=== PATIENT | male | born 1965 | race Caucasian/White ===

== ENCOUNTER → 2020-08-02 | Outpatient (CLI) | payer BC ==
--- NOTE | 2020-08-05 12:39 | CARD ---
MR#: [id number] Date of Study: 08/02/2020 Ordering Physician: AMAURI AMBROSIO, Referring Physician: AMAURI AMBROSIO, Tech: Aminata Tyler [facility] APPROVED REPORT EXAM: Two-dimensional and M-mode echocardiogram with Doppler and color Doppler. Other Information Quality : AverageHR: 69bpm Rhythm : NSR INDICATION 2D DIMENSIONS RVDd4.7 (2.9-3.5cm)Left Atrium(2D)3.6 (1.6-4.0cm) IVSd1.2 (0.7-1.1cm)Aortic Root(2D)4.3 (2.0-3.7cm) LVDd4.0 (3.9-5.9cm)LVOT Diameter2.7 (1.8-2.4cm) PWd1.1 (0.7-1.1cm)IVSs1.3 (0.8-1.2cm) LVDs3.1 (2.5-4.0cm)FS (%) 22.7 % PWs1.4 (0.8-1.2cm)SV33.1 ml Aortic Valve AoV Peak Radhames.104.6cm/sAoV VTI21.1cm AO Peak GR.4.4mmHgLVOT Peak Radhames.108.5cm/s LVOT VTI 21.38cmAO Mean GR.3mmHg DNAI (VMAX)4.43uc7QQA (VTI)5.90cm2 Mitral Valve MV E Egxjbyqh04.7cm/sMV DECEL [id number] MV A Ajxvfytk25.3cm/sMV [id number] E/A Ratio1.1MVA (PHT)3.70cm2 TDI E/Lateral E'4.2E/Medial E'5.4 Pulmonary Valve PV Peak Tmpdryiz616.9cm/sPV Peak Grad.7mmHg Tricuspid Valve TR P. Etbdjnon435cb/sTR Peak Gr.29mmHg LEFT VENTRICLE The left ventricle is normal size. There is mild concentric left ventricular hypertrophy. The left ve ntricular systolic function is normal and the ejection fraction is within normal range. LV fraction of 55-60%. There is normal LV segmental wall motion. The left ventricular diastolic function and fill ing is normal for age. RIGHT VENTRICLE The right ventricle is mildly dilated. There is normal right ventricular wall thickness. The right ve ntricular systolic function is normal. ATRIA The left atrium size is normal. The right atrium is mildly dilated. The interatrial septum is intact with no evidence for an atrial septal defect or patent foramen ovale as noted on 2-D or Doppler imagi ng. AORTIC VALVE The aortic valve is mildly thickened but opens well. Doppler and Color Flow revealed trace aortic reg urgitation. There is no significant aortic valvular stenosis. MITRAL VALVE The mitral valve is normal in structure and function. There is no evidence of mitral valve prolapse. There is no mitral valve stenosis. Doppler and Color-flow revealed trace to mild mitral regurgitation . TRICUSPID VALVE The tricuspid valve is normal in structure and function. Doppler and Color Flow revealed mild tricusp id regurgitation. Estimated PAP 42 mmHg. There is no tricuspid valve stenosis. PULMONIC VALVE The pulmonary valve is normal in structure and function. Doppler and Color Flow revealed trace pulmon ic valvular regurgitation. GREAT VESSELS The aortic root is normal in size. The ascending aorta is normal in size. The IVC is normal in size a nd collapses >50% with inspiration. PERICARDIAL EFFUSION There is no evidence of significant pericardial effusion. Critical Notification Critical Value: No <Conclusion> The left ventricle is normal size. The left ventricular systolic function is normal and the ejection fraction is within normal range. LV fraction of 55-60%. There is mild concentric left ventricular hypertrophy. Doppler and Color Flow revealed trace aortic regurgitation. There is no significant aortic valvular stenosis. Doppler and Color-flow revealed trace to mild mitral regurgitation. Doppler and Color Flow revealed mild tricuspid regurgitation. Estimated PAP 42 mmHg. Signed by : Rowdy Campos MD Electronically Approved : 08/05/2020 12:39:00
== END ==
LOC: ECHO 12:46
PROVIDERS: ATTEND Internal Medicine Cardiovascular Disease
DX: I08.1 Rheumatic disorders of both mitral and tricuspid valves (principal); Q21.0 Ventricular septal defect
CPT/HCPCS: 93306